=== PATIENT | female | born 1970 | race Caucasian/White ===

== ENCOUNTER 2022-05-12 14:44 | Outpatient (CLI) | payer BC, SELFPAY ==
--- NOTE | 2022-05-12 15:00 | CRLHL7_ITS ---
For Patients: As a result of the Century Cures Act, medical imaging exams and procedure reports are released immediately into your electronic medical record. You may view this report before your referring provider. If you have questions, please contact your health care provider. BILATERAL SCREENING MAMMOGRAM WITH COMPUTER-AIDED DETECTION AND TOMOSYNTHESIS TECHNIQUE: CC and MLO views were obtained. These mammographic images have been obtained using full-field digital technique. These mammographic images were interpreted with the benefit of computer-aided detection. Breast Tomosynthesis was used in this interpretation. COMPARISON FILM: 07/22/20, 11/02/18, 09/26/15. FINDINGS: The breasts are heterogeneously dense, which may obscure small masses IMPRESSION: There is no radiographic evidence for malignancy. ASSESSMENT: BI-RADS Category 1: Negative RECOMMENDATION: Routine screening mammogram in 1 year. A lay language report of this examination will be provided to the patient. Gentry Solomon M.D. Diagnostic/Musculoskeletal Radiologist [email or web address] LUIS/Dictated by: Gentry Solomon MD @ 05/14/2022 7:55:00 AM (Electronically Signed)
== END 2022-05-12 14:45 | disposition home or self-care (01) ==
LOC: MAMMO 14:47
PROVIDERS: Visit Provider Family Medicine
DX: Z12.31 Encounter for screening mammogram for malignant neoplasm of breast (principal)
CPT/HCPCS: 77063; 77067

== ENCOUNTER 2022-10-06 10:16 | Outpatient (CLI) | payer BC, SELFPAY ==
[2022-10-06 14:18] LABS: Uric Acid* 5.6 mg/dL (2.2-8.4)
== END 2022-10-06 10:17 | disposition home or self-care (01) ==
LOC: NFLDREF 10:17
PROVIDERS: PCP Family Medicine; Visit Provider Family Medicine
DX: M10.9 Gout, unspecified (principal); M79.671 Pain in right foot
CPT/HCPCS: 84550

== ENCOUNTER 2022-10-18 07:51 | Outpatient (CLI) | payer BC, SELFPAY ==
[2022-10-18 09:46] LABS: Albumin* 3.8 g/dL (3.3-5.0); Chloride* 109 mmol/L (96-114)
[2022-10-18 09:47] LABS: Potassium* 4.2 mmol/L (3.6-5.1); Sodium* 138 mmol/L (135-149)
[2022-10-18 09:48] LABS: Cholesterol* 190 mg/dL (90-199)
[2022-10-18 09:49] LABS: Alkaline Phosphatase* 56 U/L (40-150); Aspartate Amino Transferase* 24 U/L (12-35); Bilirubin Total* 0.6 mg/dL (0.1-1.5); Blood Urea Nitrogen* 9 mg/dL (7-30); Carbon Dioxide* 25 mmol/L (20-32); Creatinine* 0.9 mg/dL (0.5-1.5); Estimated Glomerular Filt Rate 77 ml/min; Glucose* 88 mg/dL (60-115); Total Protein* 7.1 g/dL (6.0-8.3); Triglycerides* 80 mg/dL (40-149)
[2022-10-18 09:50] LABS: Alanine Aminotransferase* 16 U/L (4-35); Calcium* 8.5 mg/dL (8.4-10.6); HDL Cholesterol* 63 mg/dL (>=50); LDL Cholesterol Calculated 111 mg/dL (<100)
[2022-10-18 10:04] LABS: Vitamin D 25 Hydroxy* 44 ng/mL (30-80)
== END 2022-10-18 07:52 | disposition home or self-care (01) ==
PROVIDERS: PCP Family Medicine; Visit Provider Family Medicine
DX: Z00.00 Encounter for general adult medical examination without abnormal findings (principal); E55.9 Vitamin D deficiency, unspecified; E78.5 Hyperlipidemia, unspecified; M10.9 Gout, unspecified; N92.6 Irregular menstruation, unspecified
CPT/HCPCS: 80053; 80061; 82306

== ENCOUNTER 2022-12-02 13:19 | Outpatient (CLI) | payer OTHER, SELFPAY ==
--- NOTE | 2022-12-02 13:30 | CRLHL7_ITS ---
For Patients: As a result of the Century Cures Act, medical imaging exams and procedure reports are released immediately into your electronic medical record. You may view this report before your referring provider. If you have questions, please contact your health care provider. DXA BONE MINERAL DENSITY STUDY, 12/02/2022 Reason for exam: Osteopenia. Current height (in): 65. Weight (lb): 138. Menopause age: N/A. Ethnicity: White. 1. Have you had a previous hip or vertebral fracture? No. 2. Have you had any fractures during your adult life which did not result from significant trauma (e.g., auto accident)? No. 3. Did either of your parents have a hip fracture? No. 4. Do you smoke? No. 5. Have you ever taken Glucocorticoids? No. 6. Do you have rheumatoid arthritis? No. 7. Do you have secondary osteoporosis? No. 8. Do you drink 3 or more alcoholic drinks per day? No. 9. Are you being treated for osteoporosis? No. 10. Have you ever taken any of the following medications: Actonel, Evista, Fosamax, Miacalcin, Reclast, Boniva, Forteo, HRT (i.e., estrogen/hormone therapy), Protelos, Prolia, Vitamin D, Calcium, other ??? please specify. ANSWER: Yes, vitamin D and calcium. 11. Do you have any of the following medical conditions: Anorexia or bulimia, asthma or emphysema, end stage renal disease, hyperparathyroidism, any seizure disorders, cancer, inflammatory bowel diseases, hysterectomy, other ??? please specify. ANSWER: No. 12. What was your maximum height (inches)? 66. 13. Do you perform weight bearing exercise regularly? Yes. 14. Do you regularly consume dairy products? Yes. 15. Do you drink caffeinated beverages? No. If female: 16. At what age did your period start? 18. 17. Are you premenopausal? Yes. 18. How many full-term pregnancies have you had? 2. 19. Have you ever missed your period for more than 6 months in a row (not including or menopause)? No. TECHNIQUE: Bone mineral density study was performed using the [employer]. FINDINGS: The results of the study expressed as bone mineral density (BMD) are as follows: Lumbar spine L1 to L4: BMD: 1.048 g/cm2. Z-score: 0.8 Neck Left: BMD: 0.768 g/cm2. Z-score: 0.1 Right: BMD: 0.770 g/cm2. Z-score: 0.1 Total Left: BMD: 0.885 g/cm2. Z-score: 0.0 Right: BMD: 0.924 g/cm2. Z-score: 0.4 IMPRESSION: Normal findings with no increased fracture risk identified. The Z-score is within the expected range for age (Z-score above -2.0). (The World Health Organization [WHO] criteria do not apply to this patient). This patient does not fit the criteria to use the database of postmenopausal women. That database is useful for perimenopausal and postmenopausal women, and men 50 years old and older. Therefore, the T-scores are not useful to evaluate this patient and only the Z-scores are used. *Comparison exams done prior to 02/2020 were performed on different unit, [employer]. COMPARISON: Compared with scan of 11/06/2018, the bone mineral density has decreased by 7.1 percent at the spine and increased by 6.4 percent at the hip. Compared with scan of 11/25/2016, the bone mineral density has decreased by 0.9 percent at the spine and decreased by 2.4 percent at the hip. Oliver Mazariegos M.D. Diagnostic Radiologist [email or web address] VALENTIN/billy cervantes/Dictated by: Oliver Mazariegos MD @ 12/02/2022 2:13:00 PM (Electronically Signed)
== END 2022-12-02 13:20 | disposition home or self-care (01) ==
PROVIDERS: PCP Family Medicine; Visit Provider Family Medicine
DX: M85.80 Other specified disorders of bone density and structure, unspecified site (principal)
CPT/HCPCS: 77080

== ENCOUNTER 2023-06-24 11:01 | Outpatient (REF) | payer OTHER, SELFPAY ==
[2023-06-24 11:40] LABS: Free T4 Free Thyroxine* 1.09 ng/dL (0.70-1.85)
== END 2023-06-24 11:02 | disposition home or self-care (01) ==
LOC: NPINS 11:01
PROVIDERS: PCP Family Medicine; Visit Provider Psychiatry & Neurology Neurology
DX: R25.1 Tremor, unspecified (principal)
CPT/HCPCS: 84439; 84443

== ENCOUNTER 2023-09-23 10:00 | Outpatient (RCR) | payer OTHER, SELFPAY | END 2024-01-02 14:36 | disposition home or self-care (01) | PROVIDERS: PCP Family Medicine; Visit Provider Dentist | DX: M26.633 Articular disc disorder of bilateral temporomandibular joint (principal); M26.629 Arthralgia of temporomandibular joint, unspecified side; M26.52 Limited mandibular range of motion; Z74.09 Other reduced mobility; R29.898 Other symptoms and signs involving the musculoskeletal system; Z51.89 Encounter for other specified aftercare | CPT/HCPCS: 97110; 97140; 97161 ==

== ENCOUNTER 2023-11-23 07:40 | Outpatient (CLI) | payer OTHER, SELFPAY | END 2023-11-23 07:41 | disposition home or self-care (01) | LOC: NFLDREF 12-05 07:09 | PROVIDERS: PCP Family Medicine; Referring Provider Family Medicine; Visit Provider Family Medicine | DX: M85.89 Other specified disorders of bone density and structure, multiple sites (principal); E78.5 Hyperlipidemia, unspecified; R25.1 Tremor, unspecified | CPT/HCPCS: 80053; 80061; 82306 ==

== ENCOUNTER 2024-02-21 13:07 | Outpatient (CLI) | payer OTHER, SELFPAY ==
--- NOTE | 2024-02-21 13:20 | CRLHL7_ITS ---
For Patients: As a result of the Cures Act, medical imaging exams and procedure reports are released immediately into your electronic medical record. You may view this report before your referring provider. If you have questions, please contact your health care provider. BILATERAL SCREENING MAMMOGRAM WITH COMPUTER-AIDED DETECTION AND TOMOSYNTHESIS TECHNIQUE: CC and MLO views were obtained. These mammographic images have been obtained using full-field digital technique. These mammographic images were interpreted with the benefit of computer-aided detection. Breast Tomosynthesis was used in this interpretation. COMPARISON FILM: 05/12/22, 11/02/18, 11/01/17. FINDINGS: The breasts are heterogeneously dense, which may obscure small masses IMPRESSION: There is no radiographic evidence for malignancy. ASSESSMENT: BI-RADS Category 1: Negative RECOMMENDATION: Routine screening mammogram in 1 year. A lay language report of this examination will be provided to the patient. LOW ROACH M.D. Diagnostic/Nuclear Medicine Radiologist [email or web address] KIP:billy Transcribed: 2:23 p.mTosha cervantes/Dictated by: Low Roach MD @ 02/23/2024 8:59:00 AM (Electronically Signed)
== END 2024-02-21 13:08 | disposition home or self-care (01) ==
LOC: MAMMO 13:07
PROVIDERS: PCP Family Medicine; Visit Provider Family Medicine
DX: Z12.31 Encounter for screening mammogram for malignant neoplasm of breast (principal); R92.2 Inconclusive mammogram
CPT/HCPCS: 77063; 77067

== ENCOUNTER 2024-05-22 06:27 | Outpatient (CLI) | payer OTHER, SELFPAY ==
--- NOTE | 2024-05-22 08:01 | W.ANESCHARGE ---
Anesthesia Charges Start Date/Time Anesthesia Start Date: 05/22/24 Anesthesia Start Time: 07:18 Stop Date/Time Anesthesia Stop Date: 05/22/24 Anesthesia Stop Time: 07:57
--- NOTE | 2024-05-22 09:00 | W.ANESCHARGE ---
Anesthesia Charges Start Date/Time Anesthesia Start Date: 05/22/24 Anesthesia Start Time: 07:18 Stop Date/Time Anesthesia Stop Date: 05/22/24 Anesthesia Stop Time: 07:57
== END 2024-05-22 06:28 | disposition home or self-care (01) ==
LOC: OP CLINIC 06:28
PROVIDERS: PCP Family Medicine; Visit Provider Surgery
DX: Z12.11 Encounter for screening for malignant neoplasm of colon (principal)
CPT/HCPCS: 00811; 00812; 45378; J2704

== ENCOUNTER 2025-01-25 07:40 | Outpatient (CLI) | payer OTHER, SELFPAY | END 2025-01-25 07:41 | disposition home or self-care (01) | LOC: NFLDREF 02-01 00:29 | PROVIDERS: PCP Family Medicine; Referring Provider Family Medicine; Visit Provider Family Medicine | DX: E78.5 Hyperlipidemia, unspecified (principal); Z13.1 Encounter for screening for diabetes mellitus | CPT/HCPCS: 80061; 82947 ==

== ENCOUNTER 2025-07-23 13:36 | Outpatient (CLI) | payer OTHER, SELFPAY ==
--- NOTE | 2025-07-23 13:40 | CRLHL7_ITS ---
For Patients: As a result of the Century Cures Act, medical imaging exams and procedure reports are released immediately into your electronic medical record. You may view this report before your referring provider. If you have questions, please contact your health care provider. BILATERAL DIGITAL SCREENING MAMMOGRAM WITH COMPUTER-AIDED DETECTION AND TOMOSYNTHESIS CLINICAL HISTORY: Routine screening exam. COMPARISON: 02/21/2024, 05/12/2022, 11/02/2018. TECHNIQUE: Digital mammogram in CC and MLO projections including computer-aided detection (CAD). Tomosynthesis was used in this interpretation. BREAST COMPOSITION: The breasts are heterogeneously dense, which may obscure small masses. FINDINGS: RIGHT Breast: No suspicious findings. LEFT Breast: Focal asymmetric density within the medial left breast 5 cm from the nipple, CC view only. IMPRESSION: LEFT breast asymmetry/mass. RECOMMENDATIONS: Additional mammographic views of the LEFT breast including 3D spot-compression CC and 3D true lateral. LEFT breast ultrasound may also be required. [facility] will contact the patient. A lay language report of this examination will be provided to the patient. BI-RADS Category 0: Incomplete: Need Additional Imaging Evaluation Dictated by Oliver Mazariegos MD @ 07/24/2025 8:43:41 AM/CRL:ed MATA/Dictated by: Oliver Mazariegos MD @ 07/24/2025 8:43:00 AM (Electronically Signed)
== END 2025-07-23 13:37 | disposition home or self-care (01) ==
LOC: MAMMO 13:37
PROVIDERS: PCP Family Medicine; Visit Provider Family Medicine
DX: Z12.31 Encounter for screening mammogram for malignant neoplasm of breast (principal); N63.20 Unspecified lump in the left breast, unspecified quadrant; R92.333 Mammographic heterogeneous density, bilateral breasts
CPT/HCPCS: 77063; 77067

== ENCOUNTER 2025-07-29 10:28 | Outpatient (CLI) | payer OTHER, SELFPAY ==
--- NOTE | 2025-07-29 10:45 | CRLHL7_ITS ---
For Patients: As a result of the Cures Act, medical imaging exams and procedure reports are released immediately into your electronic medical record. You may view this report before your referring provider. If you have questions, please contact your health care provider. DIGITAL DIAGNOSTIC LEFT MAMMOGRAM USING TOMOSYNTHESIS LEFT BREAST ULTRASOUND CLINICAL HISTORY: LEFT breast mass/asymmetry. COMPARISON: 07/23/2025, 02/21/2024, 05/12/2022. TECHNIQUE: Digital LEFT mammogram in two projections. Tomosynthesis was used in this interpretation. Real-time ultrasound imaging of LEFT breast with imaging documentation. BREAST COMPOSITION: There are scattered areas of fibroglandular density. FINDINGS: 3D spot compression CC and 3D true lateral LEFT breast mammogram images submitted. Decreased conspicuity of previously noted asymmetric density. No architectural distortion or suspicious calcifications. Targeted LEFT breast ultrasound performed at 9 o`clock 5 cm from the nipple. Normal fibroglandular tissue is present. No fibrocystic change or mass. IMPRESSION: No evidence of malignancy. RECOMMENDATIONS: Routine screening mammography. A lay language report of this examination will be provided to the patient. BI-RADS Category 2: Benign Dictated by Oliver Mazariegos MD @ 07/29/2025 11:19:06 AM jj/Dictated by: Oliver Mazariegos MD @ 07/29/2025 11:19:00 AM (Electronically Signed)
--- NOTE | 2025-07-29 11:15 | CRLHL7_ITS ---
For Patients: As a result of the Cures Act, medical imaging exams and procedure reports are released immediately into your electronic medical record. You may view this report before your referring provider. If you have questions, please contact your health care provider. SEE DIGITAL DIAGNOSTIC LEFT MAMMOGRAM PERFORMED SAME DAY CRL:billy cervantes/Dictated by: Oliver Mazariegos MD @ 07/29/2025 11:25:00 AM (Electronically Signed)
== END 2025-07-29 10:29 | disposition home or self-care (01) ==
LOC: MAMMO 10:28
PROVIDERS: PCP Family Medicine; Visit Provider Family Medicine
DX: N63.20 Unspecified lump in the left breast, unspecified quadrant (principal); R92.8 Other abnormal and inconclusive findings on diagnostic imaging of breast
CPT/HCPCS: 76642; 77065; G0279